=== PATIENT | male | born 1965 | race Caucasian/White ===

== ENCOUNTER 2016-07-31 13:41 | Outpatient (CLI) | payer OTHER ==
--- NOTE | 2016-07-31 15:58 | DIAGNOSTIC IMAGING REPORT ---
PROCEDURE: MR BRAIN W/WO CONTRAST INDICATION: ATAXIA, POSS CVA, initial encounter TECHNIQUE: Noncontrast T1 sagittal and T2 coronal images of the brain. T2, FLAIR, gradient, FIESTA and diffusion axial images with ADC map. Pregadolinium thin-cut T1 sagittal and coronal images of the pituitary fossa. Following 20 ml of intravenous gadolinium, thin-cut T1 sagittal and coronal images of the pituitary fossa were obtained followed by FAT-SAT T1 axial images of the brain. COMPARISON: None. FINDINGS: Sulci, ventricular system and brain parenchyma have a normal appearance. There is no evidence of an acute CVA, hemorrhage, mass or abnormal enhancement. Normal posterior fossa and CP angles. Normal vascular flow voids. Bilateral antral windows with mild pansinusitis. IMPRESSION: 1. Normal brain MRI 2. Bilateral antral windows with mild pansinusitis
== END 2016-07-31 23:00 ==
LOC: MRI SRH 13:41
DX: R27.0 Ataxia, unspecified (principal)